=== PATIENT | male | born 1990 | race Caucasian/White ===

== ENCOUNTER 2016-09-12 01:14 | Emergency (ER) | payer OTHER ==
[~2016-09-12] VITALS: Ht 182.9 cm; Wt 69.5 kg
--- OUTSIDE RECORDS SUMMARY | 2016-09-12 01:19 | XMS REPORT | Continuity of Care Document ---
Author Author Chiquita Nassar [facility] Address [address] [place] [address] Phone Care Team Providers Care Pediatric Oncologist Name Role Phone Vincent Goldberg PP Unavailable Payers Payer name Insurance type Covered green party ID Authorization(s) Unknown Problems Condition Effective Dates (start - stop) Clinical Status Syncope and collapse - *Acute Acute knee pain - *Acute Pain in limb - *Acute Contact dermatitis and other eczema due to plants (except food) - *Acute Contact dermatitis and other eczema due to plants (except food) - *Acute Sprain of other specified sites of hip and thigh - *Acute Other disorders of muscle, ligament, and fascia - *Acute Sprain of other specified sites of hip and thigh - *Acute HX INJURY NEC - *Acute Benign neoplasm of skin of trunk, except scrotum - *Acute Other acne - *Acute Benign neoplasm of skin, site unspecified - *Acute Family History Family Member Diagnosis Age At Onset Status Unknown Social History Social History Element Description Quantity Unknown Allergies, Adverse Reactions, Alerts Substance Reaction Severity Status Unknown Medications Medication Instructions Dosage Effective Dates (start - stop) Status Unknown Immunizations Vaccine Date Status Comments Unknown Results Test Name Date and Time Measure Units Reference Range Abnormal Flag Comments Unknown Vital Signs Date / Time: Height Weight Pulse Rate Blood Pressure Temperature /09:43:00 71.00 in 133.00 lbs 88 /min 108/78 mm[Hg] Procedures Procedure Date Unknown Encounters Encounter Location Date Patient Visit [facility] [place] Patient Visit [facility] [place] Patient Visit [facility] [place] Patient Visit [facility] [place] [facility] [place] [facility] [place] Patient Visit [facility] [place] Advance Directives Directive Effective Date Unknown
--- OUTSIDE RECORDS SUMMARY | 2016-09-12 01:19 | XMS REPORT | Continuity of Care Document ---
Author Author [facility] Organization [facility] Address Unknown Phone Unavailable Allergies Active Description Code Type Severity Reaction Onset Reported/Identified Relationship to Patient Clinical Status Yes No Known Allergies Miscellaneous Allergy Unknown N/A 01/22/2013 Yes No Known Allergies Drug Allergy N/A N/A 05/17/2013 Yes No Known Drug Allergies Drug Allergy N/A N/A 05/17/2013 Yes No Known Food Allergies Food Allergy N/A N/A 05/17/2013 Yes No Known Allergies No Known Allergies Drug Allergy Unknown N/A 12/14/2013 Yes No Known Allergies NKMA N/A N/A 10/04/2014 Medications Problems Date Dx Coded Attending Type Code Diagnosis Diagnosed By 05/17/2013 Herman Jackson MD Final 427.31 ATRIAL FIBRILLATION 05/17/2013 Herman Jackson MD Final 427.89 OTH CARDIAC DYSRHYTHMIAS 05/17/2013 Herman Jackson MD Final 458.9 HYPOTENSION NOS 05/17/2013 Herman Jackson MD Final 780.2 SYNCOPE COLLAPSE 05/17/2013 Herman Jackson MD Final 794.31 NONSPECIFIC ABN EKG/ECG 05/17/2013 Herman Jackson MD Admitting 780.2 SYNCOPE COLLAPSE 05/17/2013 Herman Jackson MD Admitting 794.31 NONSPECIFIC ABN EKG/ECG Procedures Code Description Performed By Performed On 37.79 REVISION OR RELOCATION OF CARDIAC DEVICE POCKET Sony Shearer MD, Ghiyath 12/14/2013 Results Encounters ACCT No. Visit Date/Time Discharge Status Pt. Type Provider Facility Loc./Unit Complaint [id number] 01/22/2013 15:00:00 2012 23:59:59 CLS Outpatient Bean BEARD, Tenisha Fernández [facility]WORK
--- OUTSIDE RECORDS SUMMARY | 2016-09-12 01:19 | XMS REPORT | Referral Summary ---
Author Author [facility] Organization [facility] Address Unknown Phone Unavailable Care Team Providers Care Compatibility Test Engineer Name Role Phone Amber Goldberg Primary Care Physician [phone] Encounter [facility] [id number] Date(s): 03/31/15 - 03/31/15 [address] [place] [place] [address]- Discharge Diagnosis: Bilateral impacted cerumen Discharge Diagnosis: Muscle contraction headache Discharge Diagnosis: Vertigo Discharge Disposition: 01-Home or Self Care Attending Physician: Vincent Goldberg MD Admitting Physician: Vincent Goldberg MD Vital Signs Most recent to 1 oldest [Reference Range]: Peripheral Pulse 70 bpm Rate [60-100 bpm] (03/31/15 10:19 AM) Blood Pressure 108/70 mmHg [90-140/60-90 mmHg] (03/31/15 10:19 AM) SpO2 97 % (03/31/15 10:19 AM) Problem List No data available for this section Allergies, Adverse Reactions, Alerts No Known Allergies Medications No Known Medications Results No data available for this section Immunizations No data available for this section Procedures No data available for this section Social History Social History Type Response Smoking Status Never smoker Assessment and Plan Extracted from: Title: Office Visit Note Author: Vincent Goldberg MD Date: 03/31/15 Assessment/Plan 1.Bilateral impacted cerumen Ears were lavaged bilaterally. Ordered: Office Visit Level 3 Est 82031 2.Muscle contraction headache Recommend Tylenol or Ibuprofen for headache. Ordered: Office Visit Level 3 Est 67675 3.Vertigo Hopefully with ears beinglavaged and normal appearingvertigo will improve, he can try OTC Meclizine. Ordered: Office Visit Level 3 Est 54128
--- OUTSIDE RECORDS SUMMARY | 2016-09-12 01:19 | XMS REPORT | Referral Summary ---
Author Author [facility] Organization [facility] Address Unknown Phone Unavailable Care Team Providers Care Aboriginal Ceremonial Celebrant Name Role Phone Amber Goldberg Primary Care Physician [phone] Encounter Date(s): 07/02/15 - 07/02/15 [address] [place] [address] [place] [address]- Discharge Diagnosis: Poison liz Discharge Disposition: 01-Home or Self Care Attending Physician: Vincent Goldberg MD Admitting Physician: Vincent Goldberg MD Vital Signs Most recent to 1 oldest [Reference Range]: Peripheral Pulse 73 bpm Rate [60-100 bpm] (07/02/15 5:24 PM) Blood Pressure 110/78 mmHg [90-140/60-90 mmHg] (07/02/15 5:24 PM) SpO2 99 % (07/02/15 5:24 PM) Problem List No data available for this [...] Visit Note Author: Vincent Goldberg MD Date: 07/02/15 Assessment/Plan 1.Poison liz Recommend Zyrtec and Liz dry. Celestone 1.6ml IM given. Ordered: betamethasone,=1.6 mL, IntraMuscular, Once, First Dose: 07/02/15 18:00:00 AMMONIUM HYDROXIDE OPERATOR, Stop Date: 07/02/15 18:00:00 AMMONIUM HYDROXIDE OPERATOR Office Visit Level 3 Est 34748
[2016-09-12 01:20] VITALS: Ht 182.9 cm; Wt 69.5 kg
[2016-09-12] MEDS ORDERED: LIDOCAINE 1%/EPI 1:100,000 20ml MDV SQ ONE (01:45)
--- OUTSIDE RECORDS SUMMARY | 2016-09-12 01:52 | XMS REPORT | Continuity of Care Document ---
Author Author [facility] Organization [facility] Address Unknown Phone Unavailable Allergies Active Description [...] Status Pt. Type Provider Facility Loc./Unit Complaint [id number] 01/22/2013 15:00:00 2012 23:59:59 CLS Outpatient Bean BEARD, Tenisha Fernández [facility]WORK
--- NOTE | 2016-09-12 02:04 | ERPDOC ---
Departure Disposition Decision Date: September 12, 2016 Disposition Decision Time: 02:10 Disposition: 01 DISCHARGED HOME, SELF-CARE Impression Impression Impression: Primary Impression: Laceration of hand Encounter type: initial encounter Foreign body presence: without foreign body Laterality: left Qualified Codes: S61.412A - Laceration without foreign body of left hand, initial encounter Referrals: CARLY CROCKETT (PCP) 1 Week Patient Instructions: Laceration (ED), Care For Your Stitches (ED) Problems/Meds/Labs Reviewed?: Yes Medications reviewed and manag: Yes Additional Instructions: You have cut your hand; it was repaired with 4 stitches. Follow up with any doctor, PA, or AUTO MECHANICS TEACHER for removal in 7-10 days. Keep the wound clean and covered. Keep it covered with vaseline or triple antibiotic ointment to prevent scarring. Follow up with your doctor. Follow up care ordered?: Yes Mental Status: Alert, Oriented Scripts Cephalexin (Keflex) 500 Mg Capsule 1 CAP PO TID for 10 Days, #30 CAP Prov: AUGUSTCAMILLE DO 09/12/16 HPI General Chief Complaint: Laceration Stated Complaint: hand laceration Time Seen by Provider: 01:40 Source: patient Exam Limitations: no limitations HPI Hand/Forearm Initial Comments 26yo man presents to the ER this AM with a hand laceration. Pt was showing off his collection of swords to a friend; he accidentally cut his left hand webspace. Occurred At: home Onset: Rapid Duration: 1 hr Pain Scale: Now: 2/10, Worst: 6/10 Severity: moderate Location: left: 2nd finger 1 - 3cm U-shaped laceration Method of Injury: incised Modifying Factors: IMPROVES WITH: immobilization, pain medication, WORSE WITH: jarring, movement Associated Symptoms: pain with grasp Allergies: Coded Allergies: No Known Allergies (Unverified , 05/08/13) Past History Past Medical History Pt denies signifigant PMH Surgical History General: other Vaccines Hx Influenza Vaccination: Yes (JAN 2013) Review of Systems Integumentary Comments Laceration Exam General General Nourishment: well nourished, well developed, appears stated age, no acute distress, adult, thin General Body Habitus: well groomed Vital Signs: RN Vital Signs have been reviewed: Yes, Temperature: 98.2, Source : Oral, Heart Rate: 101, Respiratory Rate: 18, BP: 124/83, Pulse Oximetry: 97 Height (Feet): 6 Height (Inches): 0 Fastrak Hand/Forearm Hand/Forearm : Upper Extremity: Left Hand: laceration, NOT FOUND: deformity, ecchymosis, erythema, swelling, tender Neurologic RN Documented GCS Eye Opening: (4)Spontaneous Verbal: (5)Oriented Motor: (6)Obeys Commands Total: Supervisory Exam Head: atraumatic Eyes: PERRL Nares: no exudate Neck: trachea midline Chest: symmetric Abdomen: non-distended Musculoskeletal: no deformity or atrophy Neurological: no abnormal movements Psychological: alert, appropriate Differential Diagnoses Considering: Amputation, Contusion, Dislocation, Laceration, Extensor Tendon Injury, Flexor Tendon Injury Procedures Procedures Performed Procedures Performed: Laceration Repair Laceration/Wound Repair Wound/Laceration Repair : Wound Location: upper extremity Wound Length (cm): 3 Depth, Shape: flap (U-shaped) Explored: clean Irrigated: saline Prep: hibiclens Anesthesia: 1% Lidocaine c Epi Volume Anesthetic (ccs): 3 Type of Block: local Wound Debrided: minimal Wound Revision?: No Repaired With: Sutures Suture Size: 3:0 Suture Type: ethilon Number of Sutures: 4 Layer Closure?: No Sterile Dressing Applied?: Yes Splint Applied?: No Sling Applied?: No Progress Results/Orders Orders Procedure Category Date Status Time Lidocaine 1% / Epi PHA 09/12/16 Complete 1:100,000 (Xylocaine 01:45 Medications Current ED Medications Lidocaine/ Epinephrine (Xylocaine 1%/ Epi 1:100,000) 20 ml O ONCE SQ ; Start at 01:45; Stop 09/12/16 at 01:46; Status DC Progress Progress Pt with laceration and repair as described. No tendon laceration, full range of motion, and full strength. Atbx and instructions for f/u given. Pt voiced understanding of dx, prognosis, tx, and f/u need. CAMILLE ALBRIGHT DO September 12, 2016 02:04
[2016-09-12] MEDS ORDERED: CEPH-583 PO (02:12)
[2016-09-12] MEDS ORDERED: NEOMYCIN/POLYM/BACITR OINT PACKET TOP ONE (02:30)
[2016-09-12 02:31] VITALS: BP 124/83; PULSE 101; RESP 18; TEMP 98.2; O2SAT 97
--- NOTE | 2016-09-12 02:31 | NUR ---
DEPART PT GIVEN DI FOR CARE FOR STITCHES, LAC, KEFLEX, F/U. RX PROVIDED FOR KEFLEX. PT VERBALIZES UNDERSTANDING OF DI, MED, AND F/U. QUESTIONS ASKED/ANSWERED - DENIES FURTHER QUESTIONS/NEEDS AT THIS TIME. PT CONTINUES TO DENY PAIN. PERSONAL BELONGINGS GATHERED. LAC SITE CLEAN/DRY/INTACT - NO SIGN OF BLEEDING AT THIS TIME. PT AMBULATED/ESCORTED TO ED EXIT - GAIT STABLE, NO SIGN OF DISTRESS AT THIS TIME.
== END 2016-09-12 02:31 | disposition home or self-care (01) ==
LOC: ED 01:14
DX: S61.412A Laceration without foreign body of left hand, initial encounter (principal); W26.1XXA Contact with sword or dagger, initial encounter; Y93.89 Activity, other specified; Y92.009 Unspecified place in unspecified non-institutional (private) residence as the place of occurrence of the external cause; Y99.8 Other external cause status